=== PATIENT | female | born 1995 | race African-American/Black ===

== ENCOUNTER 2021-07-13 10:49 | Emergency (ER) | payer MEDICAID ==
[~2021-07-13] VITALS: Ht 162.6 cm; Wt 85.0 kg
[2021-07-13] MEDS ORDERED: LEVETIRACETAM 1000MG PREMIX 100 ML IV ONE (11:30)
[2021-07-13 11:50] LABS: BASOPHILS % 1.1 % (0.0-2.0); EOSINOPHILS % 2.2 % (0.0-5.0); HEMATOCRIT. 34.9 % (36.0-48.0); HEMOGLOBIN. 11.7 g/dL (12.0-16.0); LYMPHOCYTES % 27.4 % (20.0-50.0); MEAN CORPUSCULAR HEMOGLOBIN 28.7 pg (28.0-32.0); MEAN CORPUSCULAR VOLUME 85.2 fL (81.0-99.0); MEAN PLATELET VOLUME 8.4 fl (7.4-10.4); MONOCYTES % 8.3 % (2.0-8.0); PLATELET 355 x1000/uL (130-400); RED BLOOD CELL COUNT 4.09 mill/uL (4.2-5.4); RED CELL DISTRIBUTION WIDTH 13.1 % (11.6-14.6)
[2021-07-13 12:11] LABS: CHLORIDE 108 mEq/L (98-107)
[2021-07-13 12:34] LABS: HCG SCREEN NEGATIVE
[2021-07-13 14:55] VITALS: BP 124/76
== END 2021-07-13 15:16 | disposition home or self-care (01) ==
LOC: ER 10:59 → EDBD 10:59 → ER 15:16
DX: G40.909 Epilepsy, unspecified, not intractable, without status epilepticus (principal); R00.0 Tachycardia, unspecified
CPT/HCPCS: 36415; 80053; 84703; 85025; 93005; 96374; 99284; J1953